=== PATIENT | male | born 1995 | race Caucasian/White ===

== ENCOUNTER 2022-04-30 19:40 | Emergency (ER) | payer SELFPAY ==
[~2022-04-30] VITALS: Ht 154.9 cm; Wt 64.4 kg
[2022-04-30 19:52] VITALS: BP 141/89
--- NOTE | 2022-04-30 19:58 | NUR ---
PATIENT TO LOBBY
--- NOTE | 2022-04-30 20:15 | NUR ---
27 Y/O MALE BIBS FROM HOME, C/O LEFT BIG TOE PAIN X YESTERDAY. POSSIBLE FRACTURE. PUT ICE AND AND PAIN MEDICINE WITH SOME RELIEF. PATIENT WAS WALKING AND STUBBED HIS TOE ON A TABLE. CMS INTACT. MILD SWELLING NO REDNESS OR BRUISING. PT IS AMBULATORY W/O ASSISTANCE. PMH: DENIES NKA
[2022-04-30] MEDS ORDERED: IBUP-2213 PO (21:15)
[2022-04-30 21:43] VITALS: BP 138/86
--- NOTE | 2022-04-30 21:43 | NUR ---
Patient discharged with v/s stable. Written and verbal after care instructions given and explained. Patient alert, oriented and verbalized understanding of instructions. Ambulatory with steady gait. All questions addressed prior to discharge. ID band removed. Patient advised to follow up with PMD. Rx of IBUPROFEN given. Patient educated on indication of medication including possible reaction and side effects. Opportunity to ask questions provided and answered. VSS, A/OX4, UNLABORED BREATHING, AMBULATORY, AND CALM DEMEANOR.
== END 2022-04-30 21:43 | disposition home or self-care (01) ==
LOC: MED 19:40
DX: S90.112A Contusion of left great toe without damage to nail, initial encounter (principal); Z79.899 Other long term (current) drug therapy; W22.8XXA Striking against or struck by other objects, initial encounter; Y93.89 Activity, other specified; Y92.89 Other specified places as the place of occurrence of the external cause; Y99.8 Other external cause status
CPT/HCPCS: 73660; 99283